=== PATIENT | female | born 1990 | race African-American/Black ===

== ENCOUNTER 2016-12-06 14:48 | Emergency (ER) | payer OTHER ==
[~2016-12-06] VITALS: Ht 170.2 cm; Wt 50.8 kg
[~2016-12-06 14:48] MED LIST: APAP500 PO; BACTROBAN CREAM30 G1 TOP; BENADRYL25 MG PO; CIPROFLOXACIN500 M1 PO; CYCLOBENZAPRINE5 MG PO; DIFLUCAN150 MG PO; IBUPROFEN 600600 M1 PO; IRON325 PO; KEFLEX500 MG PO; LANOLIN56 GM; MACROBID 100 M100 M1 PO; NOHOMEMEDICATIONS; NORCO 5-325 TA1 EACH PO; PHENERGAN 25 MG25 M1 PO; PHENERGAN50 MG RC; PREDNISONE 20 M20 M1 PO; PRENATAL PO; SENNA PO; TRIAMCINOLONE TOP; TUCKS MEDICATE1 EAC1; ULTRAM 50MG TAB50 MG PO; VENTOLIN HFA 1818 GM INH; ZANTAC 150MG T150 M1 PO; ZOFRAN ODT4 MG PO; ZOFRAN4 MG
[2016-12-06 15:50] LABS: URINE BILIRUBIN NEGATIVE (Negative); URINE BLOOD NEGATIVE (Negative); URINE COLOR YELLOW; URINE GLUCOSE-RANDOM* NEGATIVE (Negative); URINE KETONES NEGATIVE (Negative); URINE NITRITE NEGATIVE (Negative); URINE PROTEIN (DIPSTICK) NEGATIVE (Negative); URINE SPECIFIC GRAVITY 1.025 (1.003-1.035); URINE UROBILINOGEN 0.2 E.U./dl (0.2-1.0)
[2016-12-06 15:56] LABS: CASTS None Seen /LPF (None Seen); CRYSTALS None Seen /LPF (None Seen); SQUAMOUS >10 Many /LPF (0-3)
[2016-12-06 15:57] LABS: AMORPHOUS URATES Few /LPF (None Seen); BACTERIA 1-9 Few /HPF (None Seen); URINE RBC 0-2 Rare /HPF (0-2); URINE WBC 6-15 Few /HPF (0-5)
[2016-12-06] MEDS ORDERED: NAPROSYN500 MG PO (16:26)
[2016-12-06] MEDS ORDERED: MACROBID 100 M100 M1 PO (16:26)
[2016-12-06 16:39] VITALS: BP 120/68
== END 2016-12-06 16:40 | disposition home or self-care (01) ==
LOC: ER 14:48
PROVIDERS: Nurse Practitioner
DX: N39.0 Urinary tract infection, site not specified (principal); M94.0 Chondrocostal junction syndrome [Tietze]; R10.9 Unspecified abdominal pain; F17.210 Nicotine dependence, cigarettes, uncomplicated